=== PATIENT | female | born 1980 | race Caucasian/White ===

== ENCOUNTER 2016-06-19 06:47 | Inpatient (IN) | payer MEDICAID, OTHER ==
[~2016-06-19] VITALS: Ht 172.7 cm; Wt 77.6 kg
[~2016-06-19 06:47] MED LIST: CYCL-36 PO; IBUP800 PO; LEVA750T9 PO; MACR100C PO; TRAM50 PO
[2016-06-19 06:49] VITALS: BP 124/73; PULSE 96; RESP 18; TEMP 97.6; O2SAT 99
[2016-06-19 09:28] VITALS: BP 108/58; PULSE 76; RESP 15; O2SAT 99
[2016-06-19] MEDS ORDERED: SODIUM CHLOR 0.9% 1000 ML INJ 1,000 ML IV SCH (09:44)
[2016-06-19] MEDS ORDERED: SODIUM CHLORIDE 0.9% FLUSH 5 ML FLUSH IVF PRN (09:45)
[2016-06-19 10:35] LABS: AUTOMATED NEUTROPHIL # 4.4 TH/MM3 (1.8-7.7); BASOPHIL % 0.4 % (0.0-2.0); EOSINOPHIL # 0.2 TH/MM3 (0-0.4); EOSINOPHIL % 2.6 % (0.0-4.0); HEMATOCRIT 29.7 % (35.0-46.0); HEMO FLAGS DIFF FINAL; LYMPH % 31.5 % (9.0-44.0); LYMPHOCYTE # 2.4 TH/MM3 (1.0-4.8); MEAN CORPUSCULAR HEMOGLOBIN 31.2 PG (27.0-34.0); MEAN CORPUSCULAR HGB CONC 33.2 % (32.0-36.0); MONO % 6.4 % (0.0-8.0); NEUT % 59.1 % (16.0-70.0); PLATELET COUNT 150 TH/MM3 (150-450); RED BLOOD COUNT 3.16 MIL/MM3 (4.00-5.30); RED CELL DISTRIBUTION WIDTH 13.4 % (11.6-17.2); WHITE BLOOD COUNT 7.5 TH/MM3 (4.0-11.0)
--- NOTE | 2016-06-19 10:38 | PD ---
HPI Chief Complaint: Neuro Symptoms/ Deficits Time Seen by Provider: 09:33 Travel History International Travel<30 days: No Contact w/Intl Traveler<30days: No Traveled to known affect area: No History of Present Illness HPI Patient is a 35-year-old female who presents to emergency room with complaints of incontinence of urine as well as low back pain with numbness to the left leg and difficulty with ambulation. Patient reports that she has been having acute on chronic back pain. Reports that she has been following up with chiropractor who was performing HVLA on her. Patient reports that she has had a few sessions and has had manipulation to her low back. Reports concern as after her session, she began to feel numbness down her left leg. Reports that she can 't feel when she urinates, reports that she has increased numbness down her left leg. Patient called her chiropractor who told her to come to the emergency room as she may need further testing including an MRI of her back. Patient denies any other trauma besides this. Patient does admit to saddle anesthesia. Denies history of any surgeries or procedures to her low back. PFSH Past Medical History Arthritis: No Autoimmune Disease: Yes (chronic fatigue syndrome) Cancer: No Cardiovascular Problems: No High Cholesterol: No Cerebrovascular Accident: No Diabetes: No Diminished Hearing: No Endocrine: No Genitourinary: Yes Immune Disorder: Yes Musculoskeletal: Yes Neurologic: No Psychiatric: No Reproductive: Yes Respiratory: No Immunizations Current: Yes Migraines: No Seizures: Yes (blacks out 3every 3-4 months after abd. pain?) Sleep Apnea: No ?: Not LMP: 05/2016 Menopausal: No : 1 Para: 1 Miscarriage: 0 : 0 Past Surgical History Abdominal Surgery: No Cardiac Surgery: No Ear Surgery: No Endocrine Surgery: No Eye Surgery: No Genitourinary Surgery: No Gynecologic Surgery: No Oral Surgery: Yes Thoracic Surgery: No Other Surgery: Yes (RIGHT 2ND FINGER AMP WITH REATTACHMENT) Social History Alcohol Use: No Tobacco Use: Yes (1PPD) Substance Use: No Allergies-Medications (Allergen,Severity, Reaction): Coded Allergies: Penicillin (Verified Allergy, Severe, HIVES, 06/19/16) Reported Meds & Prescriptions Reported Meds & Active Scripts Active No Active Prescriptions or Reported Medications Review of Systems General / Constitutional: No: Fever Eyes: No: Visual changes HENT: No: Headaches Cardiovascular: No: Chest Pain or Discomfort Respiratory: No: Shortness of Breath Gastrointestinal: No: Abdominal Pain Genitourinary: No: Dysuria Musculoskeletal: Positive: Limited ROM, Pain (low back pain) Skin: No Rash Neurologic: No: Weakness Psychiatric: No: Depression Endocrine: No: Polydipsia Hematologic/Lymphatic: No: Easy Bruising Physical Exam Narrative GENERAL: mild distress SKIN: Warm and dry. HEAD: Atraumatic. Normocephalic. EYES: Pupils equal and round. No scleral icterus. No injection or drainage. ENT: No nasal bleeding or discharge. Mucous membranes pink and moist. NECK: Trachea midline. No JVD. CARDIOVASCULAR: Regular rate and rhythm. No murmur appreciated. RESPIRATORY: No accessory muscle use. Clear to auscultation. Breath sounds equal bilaterally. GASTROINTESTINAL: Abdomen soft, non-tender, nondistended. Patient with saddle anesthesia and exam MUSCULOSKELETAL: No obvious deformities. No clubbing. No cyanosis. No edema. NEUROLOGICAL: Awake and alert. Patient with increased weakness to left lower extremity. Normal speech. PSYCHIATRIC: Patient anxious on exam Data Data Last Documented VS Vital Signs Date Time Temp Pulse Resp B/P Pulse Ox O2 Delivery O2 Flow Rate FiO2 06/19/16 13:19 97.8 90 16 102/53 98 Room Air Orders Complete Blood Count With Diff (06/19/16 09:44) Comprehensive Metabolic Panel (06/19/16 09:44) Prothrombin Time / Inr (Pt) (06/19/16 09:44) Act Partial Throm Time (Ptt) (06/19/16 09:44) Urinalysis - C+S If Indicated (06/19/16 09:44) Iv Access Insert/Monitor (06/19/16 09:44) NPO (06/19/16 09:44) Sodium Chlor 0.9% 1000 Ml Inj (Ns 1000 M (06/19/16 09:44) Sodium Chloride 0.9% Flush (Ns Flush) (06/19/16 09:45) Ed Urine Pregnancytest Poc (06/19/16 09:44) Mri L Spine W&W/O Contrast (06/19/16 ) Mri T Spine W & W/O Contrast (06/19/16 ) Lorazepam Inj (Ativan Inj) (06/19/16 11:00) Mri C Spine W&W/O Contrast (06/19/16 ) Gadodiamide Pf Inj (Omniscan Pf Inj) (06/19/16 12:03) ^ Kaufman Collar (06/19/16 12:58) Dexamethasone Inj (Decadron Inj) (06/19/16 13:00) Admit To Inpatient (06/19/16 ) Vital Signs (Adult) Q4H (06/19/16 13:01) Activity Bed Rest (06/19/16 13:01) Urinary Catheter Management CHARLES.Q8H (06/19/16 13:01) ^ Consent (06/19/16 13:01) Sodium Chlor 0.9% 1000 Ml Inj (Ns 1000 M (06/19/16 13:01) Sodium Chloride 0.9% Flush (Ns Flush) (06/19/16 21:00) Sodium Chloride 0.9% Flush (Ns Flush) (06/19/16 13:15) Pantoprazole Inj (Protonix Inj) (06/20/16 09:00) Oxycodone-Acetamin 5-325 Mg (Percocet (06/19/16 14:00) Morphine Inj (Morphine Inj) (06/19/16 14:00) Scd Bilateral/Knee High CHARLES.QSHIFT (06/19/16 13:01) Inpatient Certification (06/19/16 ) Clindamycin Inj (Cleocin Inj) (06/19/16 14:00) Basic Metabolic Panel (Bmp) (06/20/16 06:00) Complete Blood Count With Diff (06/20/16 06:00) Type And Screen (06/19/16 13:17) Electrocardiogram (06/19/16 13:17) Admit Order (Ed Use Only) (06/19/16 13:17) Labs Laboratory Tests Test 06/19/16 06/19/16 10:00 10:15 White Blood Count 7.5 TH/MM3 Red Blood Count 3.16 MIL/MM3 Hemoglobin 9.9 GM/DL Hematocrit 29.7 % Mean Corpuscular Volume 94.0 FL Mean Corpuscular Hemoglobin 31.2 PG Mean Corpuscular Hemoglobin 33.2 % Concent Red Cell Distribution Width 13.4 % Platelet Count 150 TH/MM3 Mean Platelet Volume 9.1 FL Neutrophils (%) (Auto) 59.1 % Lymphocytes (%) (Auto) 31.5 % Monocytes (%) (Auto) 6.4 % Eosinophils (%) (Auto) 2.6 % Basophils (%) (Auto) 0.4 % Neutrophils # (Auto) 4.4 TH/MM3 Lymphocytes # (Auto) 2.4 TH/MM3 Monocytes # (Auto) 0.5 TH/MM3 Eosinophils # (Auto) 0.2 TH/MM3 Basophils # (Auto) 0.0 TH/MM3 CBC Comment DIFF FINAL Differential Comment Prothrombin Time 10.4 SEC Prothromb Time International 0.9 RATIO Ratio Activated Partial 29.6 SEC Thromboplast Time Sodium Level 139 MEQ/L Potassium Level 4.2 MEQ/L Chloride Level 109 MEQ/L Carbon Dioxide Level 23.0 MEQ/L Anion Gap 7 MEQ/L Blood Urea Nitrogen 14 MG/DL Creatinine 0.85 MG/DL Estimat Glomerular Filtration 75 ML/MIN Rate Random Glucose 77 MG/DL Calcium Level 8.8 MG/DL Total Bilirubin 0.2 MG/DL Aspartate Amino Transf 13 U/L (AST/SGOT) Alanine Aminotransferase 11 U/L (ALT/SGPT) Alkaline Phosphatase 78 U/L Total Protein 6.7 GM/DL Albumin 3.7 GM/DL Urine Color YELLOW Urine Turbidity HAZY Urine pH 7.0 Urine Specific [place] 1.014 Urine Protein NEG mg/dL Urine Glucose (UA) NEG mg/dL Urine Ketones NEG mg/dL Urine Occult Blood NEG Urine Nitrite NEG Urine Bilirubin NEG Urine Urobilinogen LESS THAN 2.0 MG/DL Urine Leukocyte Esterase NEG Urine RBC 1 /hpf Urine WBC 2 /hpf Urine Squamous Epithelial 8 /hpf Cells Urine Bacteria RARE /hpf Microscopic Urinalysis Comment CULT NOT INDICATED MDM Medical Decision Making Medical Screen Exam Complete: Yes Emergency Medical Condition: Yes Interpretation(s) EKG at 1404: Normal sinus rhythm at 75 beats a minute, QT/QTC 364/392, no acute ST-T wave changes Vital Signs Date Time Temp Pulse Resp B/P Pulse Ox O2 Delivery O2 Flow Rate FiO2 06/19/16 09:28 76 15 108/58 99 Room Air 06/19/16 09:22 17 Room Air 06/19/16 06:49 97.6 96 18 124/73 99 Differential Diagnosis Acute on chronic back pain, cauda equina, epidural abscess, radiculopathy, cord compression Narrative Course Patient is a 35-year-old female who presents to ER with c/o of low back pain with radiculopathy and urinary incontinence with numbness to her left lower leg for the past 5 days. She reports that this occurred after she had a chiropractor treatment to her low back. Patient here for MRI of her low back for further evaluation of symptoms.. MRI of L-spine with and without contrast ordered for evaluation of possible epidural abscess versus cauda equina. Consideration for abscess as patient reports that she feels a "abscess to her low back" the past couple days, patient denies history of IV drug abuse or any surgical procedures to her low back MRI of the C-spine with large disc herniation at C6 to C7 with cord contusion and edema and the cord Call made to Dr. Claudio with neurosurgery, will admit pt to her service - requests Kaufman J collar and dexamethasone 10 mg Critical Care Narrative Aggregate critical care time was 30 minutes. Time to perform other separately billable procedures was not included in the critical care time. My time did not include minutes spent treating any other patients simultaneously or on activities that did not directly contribute to the patient's treatment. The services I provided to this patient were to treat and/or prevent clinically significant deterioration that could result in: , decompensation, deterioration I provided critical care services requiring my management, as noted below: Chart data review, documentation time, medication orders and management, vital sign assessments/reviewing monitor data, ordering and reviewing lab tests, ordering and interpreting/reviewing x-rays and diagnostic studies, care of the patient and discussion of the patient with the admitting physicians. Physician Communication Physician Communication case discussed with neurosurgeon Dr Gao, accepts pt to service Diagnosis Primary Impression: disc herniation with cord contusion and edema C6-C7 Admitting Information Admitting Physician Requests: Admit Scripts No Active Prescriptions or Reported Meds Xenia Santoyo DO Jun 19, 2016 10:38
[2016-06-19 10:43] LABS: APTT (PATIENT) 29.6 SEC (24.3-30.1); INTERNATIONAL NORMALIZED RATIO 0.9 RATIO; PROTHROMBIN TIME - PATIENT 10.4 SEC (9.8-11.6)
[2016-06-19 10:46] LABS: BACTERIA, URINE RARE /hpf; BLOOD, URINE NEG (NEG); GLUCOSE,URINE NEG (NEG); KETONE, URINE NEG (NEG); NITRITE,URINE NEG (NEG); SQUAMOUS EPITHELIAL CELL URINE 8 /hpf (0-5); URINE COLOR YELLOW (YELLW/STRAW)
[2016-06-19 10:49] LABS: COMMENT (UR) CULT NOT INDICATED; CULTURE IF INDICATED CULT NOT INDICATED
[2016-06-19 10:54] LABS: ANION GAP 7 MEQ/L (5-15); AST (GOT) 13 U/L (15-37); BLOOD UREA NITROGEN 14 MG/DL (7-18); CHLORIDE 109 MEQ/L (98-107); GLOMERULAR FILTRATION RATE 75 ML/MIN (>89); POTASSIUM 4.2 MEQ/L (3.5-5.1); SODIUM (NA) 139 MEQ/L (136-145)
[2016-06-19 10:57] LABS: ALKALINE PHOSPHATASE 78 U/L (45-117); ALT (GPT) 11 U/L (10-53); TOTAL BILIRUBIN ADULT 0.2 MG/DL (0.2-1.0)
[2016-06-19] MEDS ORDERED: LORazepam 2 MG/ML VIAL IV PUSH ONE (11:00)
[2016-06-19] MEDS ORDERED: GADODIAMIDE PF 287 MG/ML 5 ML VIAL (for RAD MRI) IV ONE (12:03)
--- NOTE | 2016-06-19 12:55 | RADRPT ---
EXAM DATE/TIME: 06/19/2016 11:16 [facility] COMPARISON: No previous studies available for comparison. INDICATIONS : Abscess. Back pain times 3 months. CONTRAST: 15 cc Omniscan (gadodiamide) IV MEDICAL HISTORY : Hx of blood infection. SURGICAL HISTORY : Hand surgery. TECHNIQUE: Multiplanar multisequence MRI of the lumbar spine was performed with and without contrast. FINDINGS: The most caudal appearing lumbar vertebra is numbered as L5. VERTEBRAE: Homogeneous signal. Normal alignment. CONUS: Normal level and configuration. POST CONTRAST: No abnormal areas of contrast enhancement are seen. T12-L1: The thecal sac has a normal diameter. No evidence of disc bulge or protrusion. The neural foramina are patent bilaterally. L1-L2: The thecal sac has a normal diameter. No evidence of disc bulge or protrusion. The neural foramina are patent bilaterally. L2-L3: The thecal sac has a normal diameter. No evidence of disc bulge or protrusion. The neural foramina are patent bilaterally. L3-L4: The thecal sac has a normal diameter. No evidence of disc bulge or protrusion. The neural foramina are patent bilaterally. L4-L5: The thecal sac has a normal diameter. No evidence of disc bulge or protrusion. The neural foramina are patent bilaterally. L5-S1: The thecal sac has a normal diameter. No evidence of disc bulge or protrusion. The neural foramina are patent bilaterally. CONCLUSION: Negative for acute process.. To Troy MD FACR on June 19, 2016 at 12:51 Board Certified Radiologist. This report was verified electronically.
[2016-06-19] MEDS ORDERED: DEXAMETHASONE SOD PHOS 20 MG/5 ML VIAL IV PUSH ONE (13:00)
[2016-06-19] MEDS: SODIUM CHLOR 0.9% 1000 ML INJ 1,000 ML IV SCH ×2 (13:01→23:01)
--- NOTE | 2016-06-19 13:02 | RADRPT ---
EXAM DATE/TIME: 06/19/2016 11:16 [facility] COMPARISON: No previous studies available for comparison. INDICATIONS: Abscess. CONTRAST: 15 cc Omniscan (gadodiamide) IV MEDICAL HISTORY: Blood infection. SURGICAL HISTORY: Hand surgery ENCOUNTER: Initial ACUITY: 3 months PAIN SCORE: 3/10 LOCATION: Neck TECHNIQUE: Multiplanar, multisequence MRI examination of the cervical spine was performed. FINDINGS: The study is abnormal. There is a large disc herniation at C6-C7 with edema in the cord. There is s sina stenosis. C2-C3: The thecal sac has a normal configuration. There is no evidence of disc herniation or spinal canal s tenosis. The neural foramina are patent bilaterally. C3-C4: The thecal sac has a normal configuration. There is no evidence of disc herniation or spinal canal s tenosis. The neural foramina are patent bilaterally. C4-C5: There is mild uncinate ridging present slightly more prominent on the right than the left. C5-C6: Very mild central bulging is present without significant spinal stenosis. C6-C7: Again seen is the significant abnormality at C6-C7 with large disc herniation or contusion. CONCLUSION: Large disc herniation at C6-C7 with cord contusion and edema in the cord. To Troy MD FACR on June 19, 2016 at 12:49 Board Certified Radiologist. This report was verified electronically.
[2016-06-19] MEDS ORDERED: SODIUM CHLORIDE 0.9% FLUSH 5 ML FLUSH IV FLUSH PRN (13:15)
[2016-06-19 13:19] VITALS: BP 102/53; PULSE 90; RESP 16; TEMP 97.8; O2SAT 98
[2016-06-19] MEDS ORDERED: CLINDAMYCIN PHOS 600 MG/4 ML VIAL IM ONE (14:00)
--- NOTE | 2016-06-19 14:09 | RADRPT ---
EXAM DATE/TIME: 06/19/2016 11:16 [facility] COMPARISON: No previous studies available for comparison. INDICATIONS: Abscess. Back pain times 3 months. CONTRAST: 15 cc Omniscan (gadodiamide) IV MEDICAL HISTORY: None. SURGICAL HISTORY: Hand surgery. ENCOUNTER: Initial ACUITY: 3 months PAIN SCORE: 5/10 LOCATION: Mid back TECHNIQUE: Multiplanar multisequence MRI of the thoracic spine was performed. FINDINGS: Sagittal T1, T2 and inversion recovery images show an isolated disc protrusion left posterior T8-9 wh ich encroaches on the anterior epidural space but does not result in significant stenosis. The spina l canal in the region of the dorsal spine is otherwise widely patent. However, at the very top of th e image, there appears to be a large disc at C6-7 which encroaches on the spinal canal, appears to re sult in some cord compromise and regional cord edema. In addition, there is a focal area of enhancem ent in the same general vicinity. Cord signal is normal throughout the rest of the spine. Detailed axial images as follows: T1-T2: Normal. T2-T3: The thecal sac has a normal diameter. No evidence of disc bulge or protrusion. T3-T4: The thecal sac has a normal diameter. No evidence of disc bulge or protrusion. T4-T5: The thecal sac has a normal diameter. No evidence of disc bulge or protrusion. T5-T6: The thecal sac has a normal diameter. No evidence of disc bulge or protrusion. T6-T7: The thecal sac has a normal diameter. No evidence of disc bulge or protrusion. T7-T8: The thecal sac has a normal diameter. No evidence of disc bulge or protrusion. T8-T9: Small left posterior disc protrusion which encroaches on the anterior epidural space. Spinal canal r emains patent, however. T9-T10: The thecal sac has a normal diameter. No evidence of disc bulge or protrusion. T10-T11: The thecal sac has a normal diameter. No evidence of disc bulge or protrusion. T11-T12: The thecal sac has a normal diameter. No evidence of disc bulge or protrusion. T12-L1: The thecal sac has a normal diameter. No evidence of disc bulge or protrusion. CONCLUSION: 1. Small left posterior disc protrusion at T8-9 encroaches on the anterior epidural space but does n ot result in significant stenosis. Spinal canal is patent throughout the dorsal spine. 2. Apparent large disc at C6-7 which encroaches on the spinal canal and appears to result in cord co mpromise and focal cord edema. 3. In addition, there appears to be an area of enhancement within the cord at that C6-7. Whether th is is reactive due to the cord compromise or actually represents an intramedullary lesion cannot be d etermined on this limited exam of this region. Recommend a dedicated MRI of the cervical spine with and without gadolinium for further characterization. Bran Townsend MD on June 19, 2016 at 13:02 Board Certified Radiologist. This report was verified electronically.
--- NOTE | 2016-06-19 14:18 | HHI.HP ---
HPI Service Neurosurgery Primary Care Physician Jamarcus Fischer Chief Complaint: numbness and pain from the neck down History of Present Illness 35 yr old presents with increased difficulty walking and controlling her bladder. She had neck pain and numbness in both lateral arms radiating to the hands with neck flexion since last February. She has improved with senior care specialist but after recent neck alignment she developed difficulty walking and urinary incontinence as well as severe back spasms. Her left groin and SI region are numb and locked. She had no trauma. Review of Systems Constitutional: COMPLAINS OF: Fatigue Endocrine: DENIES: Abnorml menstrual pattern, Heat/cold intolerance, Polydipsia , Polyuria, Polyphagia Eyes: DENIES: Blurred vision, Diplopia, Eye inflammation, Eye pain, Vision loss , Photosensitivity, Double Vision Ears, nose, mouth, throat: DENIES: Tinnitus, Hearing loss, Vertigo, Nasal discharge, Oral lesions, Throat pain, Hoarseness, Ear Pain, Running Nose, Epistaxis, Sinus Pain, Toothache, Odynophagia Respiratory: COMPLAINS OF: Cough, DENIES: Apneas, Snoring, Wheezing, Hemoptysis, Sputum production, Shortness of breath Cardiovascular: DENIES: Chest pain, Palpitations, Syncope, Dyspnea on Exertion , PND, Lower Extremity Edema, Orthopnea, Claudication Gastrointestinal: DENIES: Abdominal pain, Black stools, Bloody stools, Constipation, Diarrhea, Nausea, Vomiting, Difficulty Swallowing, Anorexia Genitourinary: COMPLAINS OF: Urinary incontinence, DENIES: Abnormal vaginal bleeding, Dysmenorrhea, Dyspareunia, Sexual dysfunction, Urinary frequency, Urgency, Hematuria, Dysuria, Nocturia, Vaginal discharge Musculoskeletal: COMPLAINS OF: Joint pain, Muscle aches, Stiffness, Joint Swelling, Back pain, Neck pain Integumentary: DENIES: Abnormal pigmentation, Pruritus, Rash, Nail changes, Breast masses, Breast skin changes, Nipple discharge Hematologic/lymphatic: DENIES: Bruising, Lymphadenopathy Immunologic/allergic: DENIES: Eczema, Urticaria Neurologic: COMPLAINS OF: Abnormal gait, Paresthesias, Poor Balance Psychiatric: COMPLAINS OF: Anxiety, Mood changes Past Family Social History Allergies: Coded Allergies: Penicillin (Verified Allergy, Severe, HIVES, 06/19/16) Past Medical History 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 [employer] Physical Exam Vital Signs Vital Signs Date Time Temp Pulse Resp B/P Pulse Ox O2 Delivery O2 Flow Rate FiO2 06/19/16 13:19 97.8 90 16 102/53 98 Room Air 06/19/16 09:28 76 15 108/58 99 Room Air 06/19/16 09:22 17 Room Air 06/19/16 06:49 97.6 96 18 124/73 99 Physical Exam Awake, oriented x 3, EOMI, pupils 2mm reactive, atraumatic head appearance Neck supple, but spastic tone in both arms and legs, positive [place] and clonus bilaterally Motor strength 4+/5 in the delt/bic/tri/IO, better on the left than on the right , HF/quads/at gastroc 5/5 with pain in the left SI region and thigh Lungs clear with occasional rhonchi, S1S2 with systolic flow murmur, abd soft, obese with left lower quadrant hyperesthesia in the left femoral distribution Skin warm, no rashes today, no bruising, cyanosis or edema. Laboratory Laboratory Tests Test 06/19/16 06/19/16 10:00 10:15 White Blood Count 7.5 Red Blood Count 3.16 Hemoglobin 9.9 Hematocrit 29.7 Mean Corpuscular Volume 94.0 Mean Corpuscular Hemoglobin 31.2 Mean Corpuscular Hemoglobin 33.2 Concent Red Cell Distribution Width 13.4 Platelet Count 150 Mean Platelet Volume 9.1 Neutrophils (%) (Auto) 59.1 Lymphocytes (%) (Auto) 31.5 Monocytes (%) (Auto) 6.4 Eosinophils (%) (Auto) 2.6 Basophils (%) (Auto) 0.4 Neutrophils # (Auto) 4.4 Lymphocytes # (Auto) 2.4 Monocytes # (Auto) 0.5 Eosinophils # (Auto) 0.2 Basophils # (Auto) 0.0 CBC Comment DIFF FINAL Differential Comment Prothrombin Time 10.4 Prothromb Time International 0.9 Ratio Activated Partial 29.6 Thromboplast Time Sodium Level 139 Potassium Level 4.2 Chloride Level 109 Carbon Dioxide Level 23.0 Anion Gap 7 Blood Urea Nitrogen 14 Creatinine 0.85 Estimat Glomerular Filtration 75 Rate Random Glucose 77 Calcium Level 8.8 Total Bilirubin 0.2 Aspartate Amino Transf 13 (AST/SGOT) Alanine Aminotransferase 11 (ALT/SGPT) Alkaline Phosphatase 78 Total Protein 6.7 Albumin 3.7 Urine Color YELLOW Urine Turbidity HAZY Urine pH 7.0 Urine Specific [place] 1.014 Urine Protein NEG Urine Glucose (UA) NEG Urine Ketones NEG Urine Occult Blood NEG Urine Nitrite NEG Urine Bilirubin NEG Urine Urobilinogen LESS THAN 2.0 Urine Leukocyte Esterase NEG Urine RBC 1 Urine WBC 2 Urine Squamous Epithelial 8 Cells Urine Bacteria RARE Microscopic Urinalysis Comment CULT NOT INDICATED Result Diagram: 06/19/16 1000 06/19/16 1000 Imaging Last Impressions Lumbar Spine MRI 06/19/16 0000 Signed Impressions: Service Date/Time: Sunday, June 19, 2016 11:16 - CONCLUSION: Negative for acute process.. To Troy MD FACR Cervical Spine MRI 06/19/16 0000 Signed Impressions: Service Date/Time: Sunday, June 19, 2016 11:16 - CONCLUSION: Large disc herniation at C6-C7 with cord contusion and edema in the cord. To Troy MD FACR Assessment and Plan Diagnosis: (1) Anemia, chronic disease Plan: Will monitor the hemoglobin and provide folate.The patient has known chronic anemia and is awaiting a hysterectomy ICD Code: D63.8 (2) Cervical spondylosis with myelopathy Plan: Large HNP at C6/7 with cord edema, chronic since last February, will need surgical decompression and arthrodesis. Surgery is scheduled for tomorrow at 13: 00. The risk of infection, bleeding, subsidence, cord edema was discussed with the patient and her . ICD Code: M47.12 Jose Guy Jun 19, 2016 14:18
[2016-06-19] MEDS: BACLOFEN 10 MG TAB PO SCH ×2 (15:00→22:45)
[2016-06-19] MEDS: LIDOCAINE HCL 5% PATCH TD SCH (15:09)
[2016-06-19] MEDS: REMOVE OLD NICODERM (NICOTINE) PATCH TD SCH (16:00)
[2016-06-19] MEDS: NICOTINE 21 MG/24 HR PATCH TD SCH (16:00)
--- NOTE | 2016-06-19 17:52 | EKG ---
Date Performed: 06/19/2016 Time Performed: 14:04:45 PTAGE: 35 years EKG: Sinus rhythm LOW QRS VOLTAGE IN PRECORDIAL LEADS BORDERLINE ECG NO SIGNIFICANT CHANGE FROM PRIOR ELECTROCARDIOGRA M. PREVIOUS TRACING : 10/22/2014 21.21 DOCTOR: Saurav Benz Interpretating Date/Time 06/19/2016 17:51:51
[2016-06-19] MEDS: [UNRECOGNIZED DRUG - REMARK] T-DERMAL SCH (21:00)
[2016-06-19] MEDS: SODIUM CHLORIDE 0.9% FLUSH 5 ML FLUSH IV FLUSH SCH (21:28)
[2016-06-19 22:00] VITALS: PULSE 84
[2016-06-19] MEDS: oxyCODONE/ACETAMINOPHEN 5 MG/325 MG TAB PO PRN (22:45)
[2016-06-20] VITALS (11 sets, daily range): BP systolic 93–106; BP diastolic 52–70; PULSE 52–84; RESP 16–20; TEMP 97.7–99; O2SAT 93–99
[2016-06-20 05:03] LABS: AUTOMATED NEUTROPHIL # 19.2 TH/MM3 (1.8-7.7); BASOPHIL % 0.2 % (0.0-2.0); HEMATOCRIT 40.8 % (35.0-46.0); HEMO FLAGS DIFF FINAL; LYMPH % 10.2 % (9.0-44.0); LYMPHOCYTE # 2.3 TH/MM3 (1.0-4.8); MEAN CELL VOLUME 92.1 FL (80.0-100.0); MEAN CORPUSCULAR HEMOGLOBIN 30.8 PG (27.0-34.0); MEAN CORPUSCULAR HGB CONC 33.4 % (32.0-36.0); MONO % 3.8 % (0.0-8.0); NEUT % 85.8 % (16.0-70.0); PLATELET COUNT 210 TH/MM3 (150-450); RED BLOOD COUNT 4.43 MIL/MM3 (4.00-5.30); RED CELL DISTRIBUTION WIDTH 13.3 % (11.6-17.2); WHITE BLOOD COUNT 22.4 TH/MM3 (4.0-11.0)
[2016-06-20 05:30] LABS: ANION GAP 6 MEQ/L (5-15); BICARBONATE 21.8 MEQ/L (21.0-32.0); BLOOD UREA NITROGEN 13 MG/DL (7-18); CHLORIDE 113 MEQ/L (98-107); GLOMERULAR FILTRATION RATE 70 ML/MIN (>89); POTASSIUM 4.1 MEQ/L (3.5-5.1); SODIUM (NA) 141 MEQ/L (136-145); TRANSFERRIN IRON PROFILE 190 MG/DL (200-360)
[2016-06-20] MEDS: BACLOFEN 10 MG TAB PO SCH ×3 (06:13→21:00)
[2016-06-20] MEDS: SODIUM CHLORIDE 0.9% FLUSH 5 ML FLUSH IV FLUSH SCH ×2 (08:23→22:45)
[2016-06-20] MEDS: MULTIVIT/MIN/PREN/FOL AC/IRON PRENATAL TAB PO SCH (08:23)
[2016-06-20] MEDS: PANTOPRAZOLE SODIUM 40 MG VIAL IV SCH (08:23)
[2016-06-20] MEDS: REMOVE OLD NICODERM (NICOTINE) PATCH TD SCH (08:23)
[2016-06-20] MEDS: LIDOCAINE HCL 5% PATCH TD SCH (08:24)
[2016-06-20] MEDS: NICOTINE 21 MG/24 HR PATCH TD SCH (08:24)
[2016-06-20] MEDS: SODIUM CHLOR 0.9% 1000 ML INJ 1,000 ML IV SCH (09:01)
[2016-06-20] MEDS: oxyCODONE/ACETAMINOPHEN 5 MG/325 MG TAB PO PRN ×2 (11:37→21:01)
[2016-06-20 11:41] LABS: HEMOGLOBIN A1a 1.2 %; HEMOGLOBIN A1b 1.6 %; HEMOGLOBIN Ao 84.7 %; HEMOGLOBIN LA1C 2.7 %
[2016-06-20] MEDS ORDERED: BUPIVACAINE HCL PF 0.5% 30 ML VIAL ONE (11:56)
[2016-06-20] MEDS ORDERED: GELFOAM SIZE 100 ONE (11:56)
[2016-06-20] MEDS ORDERED: LIDOCAINE 1%/EPINEPHrine 1:100,000 SOLN 30 ML VIAL ONE (11:56)
[2016-06-20] MEDS ORDERED: THROMBIN (TOPICAL) 5,000 UNIT VIAL ONE (11:56)
[2016-06-20] MEDS ORDERED: NEOSTIGMINE 3 MG/3 ML SYR IV ONE (12:00)
[2016-06-20] MEDS ORDERED: PHENYLEPH/NS 1000 MCG/10 ML SYR IV ONE (12:00)
[2016-06-20] MEDS ORDERED: PROPOFOL 200 MG/20 ML AMP IV ONE (12:00)
[2016-06-20] MEDS ORDERED: NORMOSOL R INJ 1,000 ML IV ONE (12:00)
[2016-06-20] MEDS ORDERED: FAMOTIDINE 20 MG/2 ML VIAL ONE (13:08)
[2016-06-20] MEDS ORDERED: KETAMINE HCL 500 MG/5 ML VIAL ONE (13:15)
[2016-06-20] MEDS ORDERED: ACETAMINOPHEN 1000 MG/100 ML VIAL IV ONE (13:15)
[2016-06-20] MEDS ORDERED: HYDROmorphone HCL PF 2 MG/ML VIAL ONE (13:15)
[2016-06-20] MEDS ORDERED: fentaNYL CITRATE 250 MCG/5 ML AMP ONE ×2 (13:15→15:08)
[2016-06-20] MEDS ORDERED: MIDAZOLAM HCL 2 MG/2 ML VIAL ONE (13:26)
[2016-06-20] MEDS ORDERED: CLINDAMYCIN PHOS 600 MG/4 ML VIAL ONE (13:27)
[2016-06-20] MEDS ORDERED: SODIUM CHLORIDE 0.9% INJ 100 ML ONE (13:28)
--- NOTE | 2016-06-20 15:25 | OTSOAPIP ---
TIME SESSION COMPLETED: AM TREATMENT TIME: 0 MINS. CHART REVIEWED. PATIENT ADMITTED WITH COMPLAINT OF BILATERAL UPPER EXTREMITIES NUMBNESS, DIFFICULTY AMBULATING AND UNCONTROLLED BLADDER. PATIENT WAS FOUND TO HAVE A LARGE DISC HERNIATION AT C6-C7 WITH CORD CONTUSION AND EDEMA IN THE CORD PATIENT WAS NOT AVAILABLE SECONDARY TO [facility]AVING CERVICAL SURGERY PLAN: WILL SEE PATIENT NEXT TREATMENT DAY INTERDISCIPLINARY COMMUNICATION: SPOKE WITH NURSING Therapist: HETAL LOERA/Romaine Signature on file
--- NOTE | 2016-06-20 16:44 | RADRPT ---
EXAM DATE/TIME: 06/20/2016 17:04 [facility] COMPARISON: No previous studies available for comparison. INDICATIONS : Cervical Spine Fusion and Diskectomy, C6-7. MEDICAL HISTORY : Osteoporosis. Seizures. SURGICAL HISTORY : None. ENCOUNTER: Initial ACUITY: 1 day PAIN SCORE: Non-responsive. LOCATION: Cervical Spine. FINDINGS: AP and lateral cone-down views of the cervical spine were obtained using a matrix camera. This demons trates that the patient is status post anterior fusion at the C6-7 level with intact anterior screw-p late fixation device in place. There is bone grafting material in the interspace. The alignment appea rs anatomic. CONCLUSION: Status post anterior fusion at the C6-7 level. Kj Goyal MD on June 20, 2016 at 16:41 Board Certified Radiologist. This report was verified electronically.
[2016-06-20] MEDS ORDERED: DO NOT ADM ANY ANTICOAGULANT DRUGS XX PRN (18:00)
[2016-06-20] MEDS: MORPHINE SULFATE 4 MG/ML INJ IV PRN (22:23)
[2016-06-21] VITALS (11 sets, daily range): BP systolic 94–120; BP diastolic 56–70; PULSE 46–84; RESP 16–20; TEMP 98–98.4; O2SAT 95–98
[2016-06-21] MEDS: oxyCODONE/ACETAMINOPHEN 5 MG/325 MG TAB PO PRN ×4 (01:32→19:56)
[2016-06-21] MEDS: MORPHINE SULFATE 4 MG/ML INJ IV PRN ×2 (04:06→10:43)
[2016-06-21 05:05] LABS: BASOPHIL # 0.1 TH/MM3 (0-0.2); BASOPHIL % 0.4 % (0.0-2.0); EOSINOPHIL % 0.1 % (0.0-4.0); HEMO FLAGS DIFF FINAL; LYMPH % 14.2 % (9.0-44.0); LYMPHOCYTE # 3.2 TH/MM3 (1.0-4.8); MEAN CELL VOLUME 94.1 FL (80.0-100.0); MEAN CORPUSCULAR HEMOGLOBIN 30.9 PG (27.0-34.0); MEAN CORPUSCULAR HGB CONC 32.8 % (32.0-36.0); MONO % 4.6 % (0.0-8.0); NEUT % 80.7 % (16.0-70.0); PLATELET COUNT 185 TH/MM3 (150-450); RED BLOOD COUNT 4.14 MIL/MM3 (4.00-5.30); RED CELL DISTRIBUTION WIDTH 13.6 % (11.6-17.2); WHITE BLOOD COUNT 22.3 TH/MM3 (4.0-11.0)
[2016-06-21] MEDS: BACLOFEN 10 MG TAB PO SCH ×3 (05:34→19:55)
[2016-06-21 05:36] LABS: BICARBONATE 21.6 MEQ/L (21.0-32.0); POTASSIUM 4.9 MEQ/L (3.5-5.1)
[2016-06-21] MEDS: SODIUM CHLORIDE 0.9% FLUSH 5 ML FLUSH IV FLUSH SCH ×2 (07:31→19:57)
[2016-06-21] MEDS: REMOVE OLD NICODERM (NICOTINE) PATCH TD SCH (07:31)
[2016-06-21] MEDS: PANTOPRAZOLE SODIUM 40 MG VIAL IV SCH (07:31)
[2016-06-21] MEDS: MULTIVIT/MIN/PREN/FOL AC/IRON PRENATAL TAB PO SCH (07:31)
[2016-06-21] MEDS: NICOTINE 21 MG/24 HR PATCH TD SCH (07:32)
[2016-06-21] MEDS: LIDOCAINE HCL 5% PATCH TD SCH (07:32)
[2016-06-21] MEDS ORDERED: guaiFENesin SOLUTION 200 MG/10 ML CUP PO PRN (18:30)
[2016-06-21] MEDS ORDERED: BENZOCAINE-MENTHOL (SUGAR FREE) 15 MG-3.6 MG LOZENGE BUCCAL PRN ×2 (18:30→21:15)
[2016-06-21] MEDS: [UNRECOGNIZED DRUG - REMARK] T-DERMAL SCH (20:00)
--- NOTE | 2016-06-21 21:13 | HHI.NSPN ---
History Chief Complaint: coughing with soar throat Interval History Day 1 after ACDF at C6/7 for a large HNP with cord contusion, alert and starting PT. Her balance difficulty and numbness in the right C7 and left thigh require the help of PT and OT this week end. She has been coughing but lozanges and robitussin helped. She is eating well. Review of Systems General: Negative for: fever, chills, insomnia Respiratory: Positive for: cough Cardiovascular: Negative for: chest pain, palpitations, orthopnea Gastrointestinal: Negative for: nausea, vomitting, diarrhea, constipation Genitourinary: Negative for: urinary burning, urinary frequency, urinary urgency Exam Results Vital Signs Date Time Temp Pulse Resp B/P Pulse Ox O2 Delivery O2 Flow Rate FiO2 06/21/16 20:15 98.4 84 16 105/58 96 06/21/16 09:57 21 06/20/16 19:47 Nasal Cannula 2.00 Intake and Output 06/20/16 06/20/16 06/21/16 08:00 16:00 00:00 Intake Total 613 ml 534 ml 2937 ml Output Total 800 ml Balance 613 ml 534 ml 2137 ml Physical Examination Alert and oriented x 3, Face symmetric, voice nasal, Motor 5/5 in the delt/bic/tri/grasps/HF but numb in the last digit of the right hand and in the left thigh Spasticity is still severe with positive Bullard bilaterally Abd soft, wound dry Lab, Micro, Other Results Laboratory Tests Test 06/21/16 04:10 White Blood Count 22.3 TH/MM3 Red Blood Count 4.14 MIL/MM3 Hemoglobin 12.8 GM/DL Hematocrit 39.0 % Mean Corpuscular Volume 94.1 FL Mean Corpuscular Hemoglobin 30.9 PG Mean Corpuscular Hemoglobin 32.8 % Concent Red Cell Distribution Width 13.6 % Platelet Count 185 TH/MM3 Mean Platelet Volume 9.3 FL Neutrophils (%) (Auto) 80.7 % Lymphocytes (%) (Auto) 14.2 % Monocytes (%) (Auto) 4.6 % Eosinophils (%) (Auto) 0.1 % Basophils (%) (Auto) 0.4 % Neutrophils # (Auto) 18.0 TH/MM3 Lymphocytes # (Auto) 3.2 TH/MM3 Monocytes # (Auto) 1.0 TH/MM3 Eosinophils # (Auto) 0.0 TH/MM3 Basophils # (Auto) 0.1 TH/MM3 CBC Comment DIFF FINAL Differential Comment Sodium Level 142 MEQ/L Potassium Level 4.9 MEQ/L Chloride Level 112 MEQ/L Carbon Dioxide Level 21.6 MEQ/L Anion Gap 8 MEQ/L Blood Urea Nitrogen 11 MG/DL Creatinine 0.88 MG/DL Estimat Glomerular Filtration 72 ML/MIN Rate Random Glucose 105 MG/DL Calcium Level 8.9 MG/DL Medical Decision Making Impression and Plan Cervical myelopathy, s/p ACDF C6/7, started OT/PT for safety, balance and core strength. Plan discharge when the gait has improved and after she has a BM. Jose Guy Jun 21, 2016 21:12
[2016-06-21] MEDS ORDERED: MAGNESIUM HYDROXIDE SUSP 30 ML CUP PO PRN (21:15)
--- NOTE | 2016-06-21 21:25 | MP ---
cc: JOSE BURR MD DATE OF SURGERY 06/20/16 PREOPERATIVE DIAGNOSIS Cervical spondylosis with myelopathy, extruded disk C6-7, cord compression. POSTOPERATIVE DIAGNOSIS Cervical spondylosis with myelopathy, extruded disk C6-7, cord compression. PROCEDURE Cord decompression at C6-7, arthrodesis with iliac crest allograft and instrumentation with Simplicity plate 22 mm and 4.0 x 14 variable screws from [place] at C6-7. HISTORY The patient is a 35-year-old lady who presented with multiple symptoms including difficulty walking and severe paresthesias in both arms and legs. She was found to have a cord edema and very large disk herniation at C6-7. She was taken to the operating room for decompression of the cord. SURGEON Jose Burr MD ANESTHESIA General TECHNIQUE The patient was brought to the operating room, place supine on the OR table. The baseline somatosensory evoked potentials were obtained. The patient was then intubated in a neutral neck position using the glide scope. After induction and induction and placement of a Jimenez, lateral x-ray was taken to verify the alignment. The incision was planned in a neck crease lateral to the midline on the right side. The skin was prepped with Betadine and then cleansed and prepped with ChloraPrep and allowed to dry. A time-out was obtained with the entire team. The skin was then infiltrated with 1% lidocaine with epinephrine. The incision was made with a 15 blade. The incision was carried through the platysma muscle with the monopolar cautery. The avascular plane medial to the sternocleidomastoid muscle and medial to the carotid artery was opened with blunt scissors. The retractor blades were then placed under the longus colli and an x-ray was obtained. The C6-7 level was marked with the monopolar cautery. The microscope was then brought into the field. Under the microscope, the ventral osteophytes were removed and Hemingway pins were inserted at C6 and C7. The disk was removed at C6-7 and the endplates cleaned with curette rongeurs. The large disk herniation was then removed in a piecemeal fashion decompressing the posterior longitudinal ligament. At the end of this decompression, the ligament was partially dissected but not completely removed because it was severely scarred to the dura. All osteophytes in front of the canal were removed with the 2-mm Kerrison rongeur. The foramina were opened with 2-mm Kerrison rongeurs. Hemostasis was obtained with FloSeal. A 7 mm graft was then easily introduced in the disk space. The 14-mm screws were then drilled at C6 and C7 using a 22 mm Simplicity plate. The locking mechanism was then activated. An x-ray was taken, AP and lateral, to verify the position of the graft and the position of the screws. The cervical fascia was then closed with 2-0 Vicryl sutures. The platysma was reapproximated with 2-0 Vicryl sutures. The dermis was reapproximated with 2-0 Vicryl sutures. The skin edges were reapproximated with 4-0 subcuticular suture. Steri-Strips were applied. Telfa and Medipore tape was then sterilely applied to the wound. The patient was then extubated and brought back to the recovery room in a stable condition. ESTIMATED BLOOD LOSS Estimated at 50 mL. Somatosensory evoked potentials and motor evoked potentials were unchanged during the case. Jose Burr MD YYG/ /4:33 PM /9:08 PM MTDBob
[2016-06-22] VITALS (9 sets, daily range): BP systolic 103–125; BP diastolic 56–70; PULSE 78–89; RESP 16–18; TEMP 97.4–98.8; O2SAT 94–98
[2016-06-22] MEDS: oxyCODONE/ACETAMINOPHEN 5 MG/325 MG TAB PO PRN ×5 (02:43→21:36)
[2016-06-22] MEDS: BACLOFEN 10 MG TAB PO SCH ×3 (05:09→21:34)
[2016-06-22] MEDS: LIDOCAINE HCL 5% PATCH TD SCH (09:00)
[2016-06-22] MEDS: NICOTINE 21 MG/24 HR PATCH TD SCH (09:00)
[2016-06-22] MEDS: REMOVE OLD NICODERM (NICOTINE) PATCH TD SCH (09:00)
[2016-06-22] MEDS: MULTIVIT/MIN/PREN/FOL AC/IRON PRENATAL TAB PO SCH (09:05)
[2016-06-22] MEDS: PANTOPRAZOLE SODIUM 40 MG VIAL IV SCH (09:05)
[2016-06-22] MEDS: DOCUSATE SODIUM 50 MG/SENNA 8.6 MG TAB PO SCH (09:05)
[2016-06-22] MEDS: SODIUM CHLORIDE 0.9% FLUSH 5 ML FLUSH IV FLUSH SCH (09:21)
--- NOTE | 2016-06-22 15:21 | HHI.NSPN ---
History Chief Complaint: coughing with soar throat Interval History Day 1 after ACDF at C6/7 for a large HNP with cord contusion, alert and starting PT. Her balance difficulty and numbness in the right C7 and left thigh require the help of PT and OT this week end. She has been coughing but lozanges and robitussin helped. She is eating well. 06/22/16 She had another coughing spell this am and increased pain but her mobility is improved. Spasticity in the left leg is also improving. Review of Systems General: Negative for: fever, chills, insomnia Respiratory: Negative for: shortness of breath, cough, sputum Cardiovascular: Negative for: chest pain, palpitations, orthopnea Gastrointestinal: Negative for: nausea, vomitting, diarrhea, constipation Genitourinary: Negative for: urinary burning, urinary frequency, urinary urgency Exam Results Vital Signs Date Time Temp Pulse Resp B/P Pulse Ox O2 Delivery O2 Flow Rate FiO2 06/22/16 12:08 98.6 78 16 125/70 95 06/22/16 10:20 21 06/20/16 19:47 Nasal Cannula 2.00 Intake and Output 06/21/16 06/21/16 06/22/16 08:00 16:00 00:00 Intake Total 1506 ml 1096 ml Balance 1506 ml 1096 ml Physical Examination Alert and oriented x 3, Face symmetric, voice nasal, Motor 5/5 in the delt/bic/tri/grasps/HF but numb in the last digit of the right hand and in the left thigh Lungs with poor aeration and few rhonchi and wheezes Spasticity is still severe with positive Bullard bilaterally but clonus on the left has improved, Abd soft, wound dry Gait improved but still needs a cane for safety wound clean and dry Medical Decision Making Impression and Plan Cervical myelopathy, s/p ACDF C6/7, started OT/PT for safety, balance and core strength. Plan discharge when the gait has improved 06/22/16 Gait training continued. Upper airway irritation still present with poor aeration. Nebs ordered for 24 hrs. Jose Guy Jun 22, 2016 15:21
[2016-06-22] MEDS: RESP: ALBUTEROL 1.25 MG/3 ML NEB (SCH) NEB ×2 (16:54→21:13)
[2016-06-22] MEDS: [UNRECOGNIZED DRUG - REMARK] T-DERMAL SCH (21:00)
[2016-06-23 00:54] VITALS: BP 113/59; PULSE 74; RESP 17; TEMP 98.2; O2SAT 93
[2016-06-23] MEDS: oxyCODONE/ACETAMINOPHEN 5 MG/325 MG TAB PO PRN ×2 (01:40→05:48)
[2016-06-23] MEDS: SODIUM CHLORIDE 0.9% FLUSH 5 ML FLUSH IV FLUSH SCH ×2 (01:41→09:19)
[2016-06-23 04:40] VITALS: BP 110/67; PULSE 82; RESP 19; TEMP 97.7; O2SAT 94
[2016-06-23] MEDS: RESP: ALBUTEROL 1.25 MG/3 ML NEB (SCH) NEB ×2 (05:03→08:26)
[2016-06-23] MEDS: BACLOFEN 10 MG TAB PO SCH ×2 (05:49→14:49)
[2016-06-23 08:00] VITALS: BP 106/58; PULSE 67; RESP 18; TEMP 96.9; O2SAT 95
[2016-06-23] MEDS: MULTIVIT/MIN/PREN/FOL AC/IRON PRENATAL TAB PO SCH (08:19)
[2016-06-23] MEDS: PANTOPRAZOLE SODIUM 40 MG VIAL IV SCH (08:19)
[2016-06-23] MEDS: DOCUSATE SODIUM 50 MG/SENNA 8.6 MG TAB PO SCH (08:20)
[2016-06-23 08:26] VITALS: O2SAT 95
[2016-06-23] MEDS ORDERED: POLYETHYLENE GLYCOL 17 GM PKG PO ONE (08:30)
[2016-06-23 08:56] LABS: AUTOMATED NEUTROPHIL # 9.6 TH/MM3 (1.8-7.7); BASOPHIL # 0.1 TH/MM3 (0-0.2); BASOPHIL % 0.4 % (0.0-2.0); EOSINOPHIL # 0.3 TH/MM3 (0-0.4); EOSINOPHIL % 1.9 % (0.0-4.0); HEMATOCRIT 35.9 % (35.0-46.0); HEMO FLAGS DIFF FINAL; LYMPHOCYTE # 3.3 TH/MM3 (1.0-4.8); MEAN CELL VOLUME 92.2 FL (80.0-100.0); MEAN CORPUSCULAR HEMOGLOBIN 31.1 PG (27.0-34.0); MEAN CORPUSCULAR HGB CONC 33.8 % (32.0-36.0); MONO % 7.6 % (0.0-8.0); NEUT % 67.1 % (16.0-70.0); PLATELET COUNT 205 TH/MM3 (150-450); RED CELL DISTRIBUTION WIDTH 12.9 % (11.6-17.2); WHITE BLOOD COUNT 14.3 TH/MM3 (4.0-11.0)
[2016-06-23] MEDS: LIDOCAINE HCL 5% PATCH TD SCH (09:00)
[2016-06-23] MEDS: REMOVE OLD NICODERM (NICOTINE) PATCH TD SCH (09:00)
[2016-06-23] MEDS: NICOTINE 21 MG/24 HR PATCH TD SCH (09:00)
[2016-06-23 12:00] VITALS: BP 110/59; PULSE 66; RESP 18; TEMP 97.9; O2SAT 97
[2016-06-23] MEDS ORDERED: OXYC1TAB63 PO (13:24)
[2016-06-23] MEDS ORDERED: NICO21DI2 TD (13:24)
[2016-06-23] MEDS ORDERED: BACL10TA PO (13:24)
--- NOTE | 2016-06-23 13:27 | HHI.DS ---
Discharge Summary Admission Date Jun 19, 2016 at 13:20 Discharge Date: Jun 23, 2016 Admitting Diagnosis Cervical cord compression with edema and disc herniation (1) Cervical spondylosis with myelopathy Diagnosis: Principal ICD Code: M47.12 (2) Anemia, chronic disease Diagnosis: Secondary ICD Code: D63.8 Brief History 35 yr old presents with increased difficulty walking and controlling her bladder. She had neck pain and numbness in both lateral arms radiating to the hands with neck flexion since last February. She has improved with intensive care specialist but after recent neck alignment she developed difficulty walking and urinary incontinence as well as severe back spasms. Her left groin and SI region are numb and locked. She had no trauma. CBC/BMP: 06/23/16 0817 06/21/16 0410 Significant Findings Laboratory Tests Test 06/21/16 06/23/16 04:10 08:17 White Blood Count 22.3 TH/MM3 14.3 TH/MM3 (4.0-11.0) (4.0-11.0) Neutrophils (%) (Auto) 80.7 % (16.0-70.0) Neutrophils # (Auto) 18.0 TH/MM3 9.6 TH/MM3 (1.8-7.7) (1.8-7.7) Monocytes # (Auto) 1.0 TH/MM3 1.1 TH/MM3 (0-0.9) (0-0.9) Chloride Level 112 MEQ/L (98-107) Estimat Glomerular Filtration 72 ML/MIN (>89) Rate Red Blood Count 3.90 MIL/MM3 (4.00-5.30) Imaging Last Impressions Cervical Spine X-Ray 06/20/16 0000 Signed Impressions: Service Date/Time: June 17:04 - CONCLUSION: Status post anterior fusion at the C6-7 level. Kj Goyal MD Thoracic Spine MRI 06/19/16 0000 Signed Impressions: Service Date/Time: Sunday, June 19, 2016 11:16 - CONCLUSION: 1. Small left posterior disc protrusion at T8-9 encroaches on the anterior epidural space but does not result in significant stenosis. Spinal canal is patent throughout the dorsal spine. 2. Apparent large disc at C6-7 which encroaches on the spinal canal and appears to result in cord compromise and focal cord edema. 3. In addition, there appears to be an area of enhancement within the cord at that C6-7. Whether this is reactive due to the cord compromise or actually represents an intramedullary lesion cannot be determined on this limited exam of this region. Recommend a dedicated MRI of the cervical spine with and without gadolinium for further characterization. Bran Townsend MD Lumbar Spine MRI 06/19/16 0000 Signed Impressions: Service Date/Time: Sunday, June 19, 2016 11:16 - CONCLUSION: Negative for acute process.. To Troy MD FACR Cervical Spine MRI 06/19/16 0000 Signed Impressions: Service Date/Time: Sunday, June 19, 2016 11:16 - CONCLUSION: Large disc herniation at C6-C7 with cord contusion and edema in the cord. To Troy MD FACR PE at Discharge Alert and oriented x 3, Motor improved with 4/5 strength in hip flexors, neck wound clean and dry, gait stable with standby assist Hospital Course She underwent ACDF at C6/7 for cord decompression followed by OT/PT Pt Condition on Discharge: Good Discharge Disposition: Discharge Home Discharge Instructions DIET: Follow Instructions for: As Tolerated, No Restrictions, Soft Diet Speech Therapy-Diet Recommenda: Soft ACTIVITIES You can perform: Weight Bearing As Gabino Activities to Avoid: Concussion Sports, Contact Sports, Lifting/Bending, Strenuous Activity, Driving Jose Guy Jun 23, 2016 13:27
[2016-07-01] MEDS ORDERED: GABA300C5 PO (15:07)
[2016-07-29] MEDS ORDERED: PROT40TA PO (15:47)
[2016-07-29] MEDS ORDERED: DULO20 PO (15:47)
[2016-08-07] MEDS ORDERED: GABA300C5 PO (14:12)
[2016-08-27] MEDS ORDERED: TRAM50TA PO (12:33)
[2016-09-13] MEDS ORDERED: GABA300C5 PO (17:11)
[2016-09-24] MEDS ORDERED: BACL10TA PO (15:36)
[2016-10-17] MEDS ORDERED: GABA300C5 PO (13:52)
== END 2016-06-23 15:21 | disposition home or self-care (01) | DRG 472 ==
LOC: NEPE 06:47 → NEDA 13:20 → N03A 21:22 → N05A 06-21 15:18
PROVIDERS: ADMIT Neurological Surgery; ATTEND Neurological Surgery
PROC: 0RT30ZZ Resection of Cervical Vertebral Disc, Open Approach (ICD-10-PCS; 2016-06-20)
PROC: 0RG1070 Fusion of Cervical Vertebral Joint with Autologous Tissue Substitute, Anterior Approach, Anterior Column, Open Approach (ICD-10-PCS; principal; 2016-06-20 13:30)
DX: M50.023 Cervical disc disorder at C6-C7 level with myelopathy (principal); M47.12 Other spondylosis with myelopathy, cervical region; R53.82 Chronic fatigue, unspecified; R32 Unspecified urinary incontinence; D63.8 Anemia in other chronic diseases classified elsewhere; N85.4 Malposition of uterus; F17.210 Nicotine dependence, cigarettes, uncomplicated; Z86.14 Personal history of Methicillin resistant Staphylococcus aureus infection; Z88.0 Allergy status to penicillin
CPT/HCPCS: 72040; 72156; 72157; 72158; 76000; 80048; 80053; 81001; 83036; 83540; 83550; 84703; 85025; 85610; 85652; 85730; 86850; 86900; 86901; 87641; 93005; 94150; 94640; 94664; 96361; 96374; 96375; A9579; C1713; C9113; J0131; J1100; J1170; J2060; J2250; J2270; J2370; J2710; J3010; J7030; J7613; L0172

== ENCOUNTER 2016-06-27 14:01 | Observation (INO) | payer MEDICAID, OTHER ==
[~2016-06-27] VITALS: Ht 157.5 cm; Wt 61.0 kg
[~2016-06-27 14:01] MED LIST changes: +BACL10TA PO; -CYCL-36 PO; -IBUP800 PO; -LEVA750T9 PO; -MACR100C PO; +NICO21DI2 TD; +OXYC1TAB63 PO; -TRAM50 PO
[2016-06-27 14:03] VITALS: BP 139/69; PULSE 132; RESP 24; TEMP 100.4; O2SAT 96
[2016-06-27 15:00] LABS: AUTOMATED NEUTROPHIL # 11.5 TH/MM3 (1.8-7.7); BASOPHIL % 0.2 % (0.0-2.0); EOSINOPHIL # 0.1 TH/MM3 (0-0.4); HEMATOCRIT 40.2 % (35.0-46.0); HEMO FLAGS DIFF FINAL; LYMPH % 5.2 % (9.0-44.0); LYMPHOCYTE # 0.7 TH/MM3 (1.0-4.8); MEAN CELL VOLUME 90.6 FL (80.0-100.0); MEAN CORPUSCULAR HEMOGLOBIN 30.5 PG (27.0-34.0); MEAN CORPUSCULAR HGB CONC 33.7 % (32.0-36.0); MONO % 1.9 % (0.0-8.0); NEUT % 91.7 % (16.0-70.0); PLATELET COUNT 194 TH/MM3 (150-450); RED BLOOD COUNT 4.44 MIL/MM3 (4.00-5.30); RED CELL DISTRIBUTION WIDTH 12.9 % (11.6-17.2); WHITE BLOOD COUNT 12.5 TH/MM3 (4.0-11.0)
[2016-06-27 15:18] LABS: BACTERIA, URINE FEW /hpf; BLOOD, URINE LARGE (NEG); COMMENT (UR) CULTURE INDICATED; CULTURE IF INDICATED CULTURE INDICATED; GLUCOSE,URINE NEG (NEG); KETONE, URINE NEG (NEG); MUCUS URINE FEW /lpf (OCC); PH, URINE 6.5 (5.0-8.5); SQUAMOUS EPITHELIAL CELL URINE 2 /hpf (0-5); URINE COLOR YELLOW (YELLW/STRAW)
[2016-06-27 15:19] LABS: NITRITE,URINE POS (NEG)
[2016-06-27 15:27] LABS: ANION GAP 9 MEQ/L (5-15); AST (GOT) 52 U/L (15-37); BICARBONATE 22.4 MEQ/L (21.0-32.0); BLOOD UREA NITROGEN 12 MG/DL (7-18); CHLORIDE 104 MEQ/L (98-107); GLOMERULAR FILTRATION RATE 70 ML/MIN (>89); POTASSIUM 3.8 MEQ/L (3.5-5.1); SODIUM (NA) 135 MEQ/L (136-145)
[2016-06-27 15:29] LABS: ALKALINE PHOSPHATASE 123 U/L (45-117); ALT (GPT) 67 U/L (10-53); TOTAL BILIRUBIN ADULT 0.6 MG/DL (0.2-1.0)
[2016-06-27] MEDS ORDERED: SODIUM CHLOR 0.9% 1000 ML INJ 1,000 ML IV ONE (19:00)
[2016-06-27] MEDS ORDERED: ONDANSETRON HCL 4 MG/2 ML VIAL IV PUSH ONE (19:00)
[2016-06-27] MEDS ORDERED: cefTRIAXone INJ 1,000 MG in SODIUM CHLORIDE 0.9% INJ 100 ML IV ONE (19:00)
[2016-06-27] MEDS ORDERED: ACETAMINOPHEN 325 MG TAB PO ONE (19:00)
[2016-06-27 19:23] VITALS: O2SAT 95
[2016-06-27 19:27] VITALS: BP 99/57; PULSE 90; RESP 18; O2SAT 95
[2016-06-27 19:44] VITALS: BP 103/63; PULSE 90; RESP 18; TEMP 98.1; O2SAT 96
[2016-06-27 19:59] LABS: BETA HCG QUANT LESS THAN 1 MIU/ML (0-5)
[2016-06-27] MEDS ORDERED: IOHEXOL 350 MG/ML 10 ML VIAL (for RAD DIAG) IV ONE (20:27)
--- NOTE | 2016-06-27 20:30 | PD ---
HPI Chief Complaint: Abdominal Pain Time Seen by Provider: 18:35 Travel History International Travel<30 days: No Contact w/Intl Traveler<30days: No Traveled to known affect area: No History of Present Illness HPI Patient is a 35 year old female who comes in complaining of chills, body aches, lower abdominal pain. She says the symptoms started yesterday. She had surgery on C6-C7 performed one week ago and was feeling fine until yesterday. She says she feels like something is stuck in her throat. She has been trying not to take the pain medication prescribed to her, but says she usually has to take one at night for severe pain. The last time she took anything was early in the morning. She reports some nausea, but no vomiting. She says she is currently on her menstrual period and has cramps to her lower abdomen. She denies cough or SOB. 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) Implanted Vascular Access Dvce: No Musculoskeletal: Yes Neurologic: Yes Psychiatric: No Reproductive: Yes (inverted uterus) Respiratory: No Immunizations Current: Yes Migraines: No Seizures: No Sleep Apnea: No ?: Not LMP: CURRENT Menopausal: No : 1 Para: 1 Miscarriage: 0 : 0 Past Surgical History Abdominal Surgery: No Cardiac Surgery: No Ear Surgery: No Endocrine Surgery: No Eye Surgery: No Genitourinary Surgery: No Gynecologic Surgery: No Oral Surgery: Yes Thoracic Surgery: No Other Surgery: Yes (RIGHT 2ND FINGER AMP WITH REATTACHMENT, SPINAL CORD SURGERY ACDF) Social History Alcohol Use: No Tobacco Use: No (QUIT 7 DAYS AGO) Substance Use: No Allergies-Medications (Allergen,Severity, Reaction): Coded Allergies: Penicillin (Verified Allergy, Severe, HIVES, 06/27/16) *MDRO Multi-Drug Resistant Organism (Verified Adverse Reaction, Unknown, MRSA, 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 Reported Meds & Prescriptions Reported Meds & Active Scripts Active Nicotine Patch (Nicotine) 21 Mg/24 Hr Patch 1 Patch TD DAILY PRN Oxycodone-Acetaminophen 5-325 mg Tab 1 Tab PO Q4H PRN Baclofen 10 Mg Tab 10 Mg PO Q8HR PRN Review of Systems Except as stated in HPI: all other systems reviewed are Neg General / Constitutional: Positive: Fever, Chills HENT: No: Headaches, Lightheadedness Cardiovascular: No: Chest Pain or Discomfort Respiratory: No: Shortness of Breath Gastrointestinal: Positive: Nausea, Abdominal Pain, Constipation, No: Vomiting Genitourinary: No: Flank Pain Musculoskeletal: No: Myalgias, Edema, Pain Skin: No Rash, No Change in Pigmentation Neurologic: No: Weakness, Dizziness Physical Exam Narrative GENERAL: awake and alert, in no acute distress SKIN: Warm and dry. Surgical wound with steri strips in place. No surrounding erythema, warmth, or fluctuance. HEAD: Atraumatic. Normocephalic. EYES: Pupils equal and round. No scleral icterus. ENT: No nasal bleeding or discharge. Mucous membranes pink and moist. NECK: Trachea midline. No JVD. CARDIOVASCULAR: Regular rate and rhythm. No murmur appreciated. RESPIRATORY: No accessory muscle use. Clear to auscultation. Breath sounds equal bilaterally. GASTROINTESTINAL: Abdomen soft, nondistended. Tender to palpation across lower abdomen. No rebound or guarding. MUSCULOSKELETAL: No obvious deformities. No clubbing. No cyanosis. No edema. NEUROLOGICAL: Awake and alert. No obvious cranial nerve deficits. Motor grossly within normal limits. Normal speech. PSYCHIATRIC: Appropriate mood and affect; insight and judgment normal. Data Data Last Documented VS Vital Signs Date Time Temp Pulse Resp B/P Pulse Ox O2 Delivery O2 Flow Rate FiO2 06/27/16 19:44 98.1 90 18 103/63 96 Room Air Orders Complete Blood Count With Diff (06/27/16 14:09) Comprehensive Metabolic Panel (06/27/16 14:09) Urinalysis - C+S If Indicated (06/27/16 14:09) Iv Access Insert/Monitor (06/27/16 14:09) Oxygen Administration (06/27/16 14:09) Oximetry (06/27/16 14:09) Lipase (06/27/16 14:09) Lactic Acid Sepsis Protocol (06/27/16 14:09) Blood Culture (06/27/16 14:09) Urine Culture (06/27/16 14:34) Ed Urine Pregnancytest Poc (06/27/16 18:55) Ct Soft Tiss Neck W Iv Cont (06/27/16 ) Ct Abd/Pel W Iv Contrast(Rout) (06/27/16 ) Beta Hcg (Quant/Titer) (06/27/16 18:55) Sodium Chlor 0.9% 1000 Ml Inj (Ns 1000 M (06/27/16 19:00) Acetaminophen (Tylenol) (06/27/16 19:00) Ondansetron Inj (Zofran Inj) (06/27/16 19:00) Ceftriaxone Inj (Rocephin Inj) (06/27/16 19:00) Iohexol 350 Inj (Omnipaque 350 Inj) (06/27/16 20:27) Place In Observation (06/27/16 ) Vital Signs (Adult) Q4H (06/27/16 21:57) Activity Oob Ad Annamaria (06/27/16 21:57) Diet Regular Basic (06/28/16 Breakfast) Sodium Chlor 0.9% 1000 Ml Inj (Ns 1000 M (06/27/16 21:57) Sodium Chloride 0.9% Flush (Ns Flush) (06/27/16 22:00) Sodium Chloride 0.9% Flush (Ns Flush) (06/28/16 09:00) Ondansetron Inj (Zofran Inj) (06/27/16 22:00) Bisacodyl Supp (Dulcolax Supp) (06/27/16 22:00) Comprehensive Metabolic Panel (06/28/16 06:00) Complete Blood Count With Diff (06/28/16 06:00) Scd Bilateral/Knee High CHARLES.BID (06/27/16 21:57) Tani Bilateral/Knee High CHARLES.QSHIFT (06/27/16 21:57) Acetaminophen (Tylenol) (06/27/16 22:00) Morphine Inj (Morphine Inj) (06/27/16 22:00) Baclofen (Lioresal) (06/27/16 22:00) Oxycodone-Acetamin 5-325 Mg (Percocet (06/27/16 22:00) Admit Order (Ed Use Only) (06/27/16 ) Consult Neurosurgery (06/27/16 ) Labs Laboratory Tests Test 06/27/16 06/27/16 14:34 15:13 White Blood Count 12.5 TH/MM3 Red Blood Count 4.44 MIL/MM3 Hemoglobin 13.6 GM/DL Hematocrit 40.2 % Mean Corpuscular Volume 90.6 FL Mean Corpuscular Hemoglobin 30.5 PG Mean Corpuscular Hemoglobin 33.7 % Concent Red Cell Distribution Width 12.9 % Platelet Count 194 TH/MM3 Mean Platelet Volume 8.5 FL Neutrophils (%) (Auto) 91.7 % Lymphocytes (%) (Auto) 5.2 % Monocytes (%) (Auto) 1.9 % Eosinophils (%) (Auto) 1.0 % Basophils (%) (Auto) 0.2 % Neutrophils # (Auto) 11.5 TH/MM3 Lymphocytes # (Auto) 0.7 TH/MM3 Monocytes # (Auto) 0.2 TH/MM3 Eosinophils # (Auto) 0.1 TH/MM3 Basophils # (Auto) 0.0 TH/MM3 CBC Comment DIFF FINAL Differential Comment Urine Color YELLOW Urine Turbidity CLEAR Urine pH 6.5 Urine Specific [place] 1.014 Urine Protein NEG mg/dL Urine Glucose (UA) NEG mg/dL Urine Ketones NEG mg/dL Urine Occult Blood LARGE Urine Nitrite POS Urine Bilirubin NEG Urine Urobilinogen LESS THAN 2.0 MG/DL Urine Leukocyte Esterase NEG Urine RBC 147 /hpf Urine WBC 7 /hpf Urine Squamous Epithelial 2 /hpf Cells Urine Bacteria FEW /hpf Urine Mucus FEW /lpf Microscopic Urinalysis Comment CULTURE INDICATED Sodium Level 135 MEQ/L Potassium Level 3.8 MEQ/L Chloride Level 104 MEQ/L Carbon Dioxide Level 22.4 MEQ/L Anion Gap 9 MEQ/L Blood Urea Nitrogen 12 MG/DL Creatinine 0.91 MG/DL Estimat Glomerular Filtration 70 ML/MIN Rate Random Glucose 93 MG/DL Calcium Level 9.3 MG/DL Total Bilirubin 0.6 MG/DL Aspartate Amino Transf 52 U/L (AST/SGOT) Alanine Aminotransferase 67 U/L (ALT/SGPT) Alkaline Phosphatase 123 U/L Total Protein 7.3 GM/DL Albumin 3.7 GM/DL Lipase 113 U/L Human Chorionic Gonadotropin, LESS THAN 1 Quant MIU/ML Lactic Acid Level 1.3 mmol/L MDM Medical Decision Making Medical Screen Exam Complete: Yes Emergency Medical Condition: Yes Differential Diagnosis UTI versus pyelonephritis versus colitis versus postop infection Narrative Course Patient is a 35-year-old female who comes in complaining of chills, abdominal pain, throat pain. Exam shows well healing surgical wound. There are some lower abdominal tenderness. IV established, labs sent. Patient has slight elevation in white blood cell count. Urinalysis is positive for UTI. Abdomen pelvis shows no acute abnormalities. CT of the neck shows a fluid collection around the surgical site. This could be postop fluid versus seroma versus abscess. I spoke with Dr. Piña would like the patient placed in observation for further management. Patient given Rocephin for her UTI. Given IV fluids, Tylenol, Zofran. She reports feeling better after medications. Patient placed in observation for further management. Diagnosis Primary Impression: UTI (lower urinary tract infection) Additional Impression: Surgical complication Qualified Code: T81.4XXA - Postoperative infection, initial encounter Admitting Information Admitting Physician Requests: Observation Marly Mandel MD Jun 27, 2016 20:30
--- NOTE | 2016-06-27 20:54 | RADRPT ---
EXAM DATE/TIME: 06/27/2016 20:20 [facility] COMPARISON: CT ABDOMEN & PELVIS W CONTRAST, March 20, 2015, 15:21. INDICATIONS : Fever, chills and constipation post surgery IV CONTRAST: 100 cc Omnipaque 350 (iohexol) IV ; Cumulative dose for multiple exams. ORAL CONTRAST: No oral contrast ingested. RADIATION DOSE: 16.39 CTDIvol (mGy) MEDICAL HISTORY : Arthritis. SURGICAL HISTORY : C6/C7 cervical cord decompresson 2 weeks ago. ENCOUNTER: Initial ACUITY: 2 weeks PAIN SCALE: 6/10 LOCATION: neck TECHNIQUE: Volumetric scanning of the abdomen and pelvis was performed. Using automated exposure control and ad justment of the mA and/or kV according to patient size, radiation dose was kept as low as reasonably achievable to obtain optimal diagnostic quality images. FINDINGS: LOWER LUNGS: The visualized lower lungs are clear. LIVER: Homogeneous density without lesion. There is no dilation of the biliary tree. No calcified gallston es. SPLEEN: Calcified granulomas are seen. PANCREAS: Within normal limits. KIDNEYS: Normal in size and shape. There is no mass, stone or hydronephrosis. ADRENAL GLANDS: Within normal limits. VASCULAR: There is no aortic aneurysm. BOWEL/MESENTERY: The stomach, small bowel, and colon demonstrate no acute abnormality. There is no free intraperitone al air or fluid. ABDOMINAL WALL: Within normal limits. RETROPERITONEUM: There is no lymphadenopathy. BLADDER: No wall thickening or mass. REPRODUCTIVE: Within normal limits. INGUINAL: There is no lymphadenopathy or hernia. MUSCULOSKELETAL: There is degenerative change of the lower lumbar spine. CONCLUSION: No acute disease. Curry Benavides MD on June 27, 2016 at 20:50 Board Certified Radiologist. This report was verified electronically.
--- NOTE | 2016-06-27 21:00 | RADRPT ---
EXAM DATE/TIME: 06/27/2016 20:20 [facility] COMPARISON: SPINE CERVICAL LTD (AP&LAT), June 20, 2016, 17:04. INDICATIONS : Fever and chills post surgery. IV CONTRAST: 100 cc Omnipaque 350 (iohexol) IV ; Cumulative dose for multiple exams. RADIATION DOSE: 12.97 CTDIvol (mGy) MEDICAL HISTORY : None SURGICAL HISTORY : C6/C7 cervical cord decompression. ENCOUNTER: Initial ACUITY: 2 weeks PAIN SCALE: 5/10 LOCATION: Neck TECHNIQUE: Volumetric scanning of the neck was performed. Using automated exposure control and a djustment of the mA and/or kV according to patient size, radiation dose was kept as low as reasonably achievable to obtain optimal diagnostic quality images. FINDINGS: There is an anterior cervical fusion plate at the C6-C7 level. There does appear to be increased density seen in the prevertebral soft tissues anterior to this region. This is seen to th e right of midline and to the right of the esophagus. It does cause some mass effect on the posterio r aspect of the right lobe of the trachea. It is associated with some adenopathy in the superior med iastinum with a prominent superior right paratracheal lymph node measuring 1.4 x 0.9 cm. The increas ed density does abut the right common carotid artery. It abuts the undersurface of the right sternoc leidomastoid muscle. A well defined rim to confirm an abscess is not seen. The patient has a 6 mm calcification in the right submandibular gland. The submandibular glands appe ar otherwise normal. The parotid glands are normal. The nasopharynx, oropharynx and hypopharynx are normal. The glottic structures are intact. CONCLUSION: Ill-defined low density/fluid in the right neck extending from the lower cervical sp ine region to the undersurface of the sternocleidomastoid muscle. This abuts the right lateral aspect of the trachea and the medial aspect of the right common carotid artery and the right lateral aspect of the esophagus. This likely represents postoperative fluid. Some degree of seroma, hematoma or ab scess cannot absolutely be excluded although a drainable rim defined structure is not seen. The domenica ent is status post anterior cervical fusion at the C6-C7 level. Curry Benavides MD on June 27, 2016 at 20:45 Board Certified Radiologist. This report was verified electronically.
--- NOTE | 2016-06-27 21:59 | HHI.HP ---
[facility] Jamarcus Fischer Admission Diagnosis Diagnoses: (1) Neck pain Diagnosis: Principal (2) Post-op pain Diagnosis: Principal (3) UTI (lower urinary tract infection) Diagnosis: Principal (4) Elevated LFTs Diagnosis: Principal Travel History International Travel<30 Days: No Contact w/Intl Traveler <30 Da: No Traveled to Known Affected Are: No History of Present Illness This is a 35-year-old female with a PMH of Chronic Fatigue Syndrome, h/o Spondylosis w/ Cord Compression and Myelopathy s/p ACDF of C6-[address] Guy on 06/20/16 who presented to the ER w/ complaints of neck pain, generalized weakness and difficulty swallowing x1 day. Denies fever, chills, nausea, vomiting or diarrhea. On arrival, BP 129/69, HR 132, O2 sat 96% on RA, Temp 100.4. WBC 12.5. Chemistry essentially unremarkable except for elevated LFTs in comparison to labs from 06/19/16. UA positive for UTI. CT Neck with ill- defined fluid in right neck extending from lower cervical spine to sternocleidomastoid muscle, likely postop fluid however unclear underlying abscess. CT Abd/Pelvis w/ no acute findings. Dr. Piña consulted by ER physician, recommended IV Abx and will eval in am. S/p Blood/Urine cultures and IV Rocephin. Review of Systems Except as stated in HPI: all other systems reviewed are Neg ROS: 14 point review of systems otherwise negative. Past Family Social History Past Medical History PMH: Chronic Fatigue Syndrome, h/o Spondylosis w/ Cord Compression and Myelopathy s/p ACDF of C6-[address] 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 No h/o DM or CAD Social History PAST SOCIAL HISTORY: Negative for alcohol or drugs. Quit tobacco 1 week ago. Physical Exam Vital Signs Vital Signs Date Time Temp Pulse Resp B/P Pulse Ox O2 Delivery O2 Flow Rate FiO2 06/27/16 19:44 98.1 90 18 103/63 96 Room Air 06/27/16 19:27 90 18 99/57 95 Room Air 06/27/16 19:23 18 06/27/16 19:23 95 Room Air 06/27/16 19:23 95 Room Air 06/27/16 14:03 100.4 132 24 139/69 96 Room Air Physical Exam PE: GENERAL: Middle-aged female in no acute distress. HEENT: PERRLA, EOMI. No scleral icterus or conjunctival pallor. No lid lag or facial droop. Steri-Strips in place, no signs of infection. CARDIOVASCULAR: Regular rate and rhythm. No obvious murmurs to auscultation. No chest tenderness to palpation. RESPIRATORY: No obvious rhonchi or wheezing. Clear to auscultation. Breath sounds equal bilaterally. GASTROINTESTINAL: Abdomen soft, non-tender, nondistended. BS normal. MUSCULOSKELETAL: Extremities without clubbing, cyanosis, or edema. No obvious deformities. NEUROLOGICAL: Awake, alert and oriented x4. No focal neurologic deficits. Moving both upper and lower extremities spontaneously. Laboratory Laboratory Tests Test 06/27/16 06/27/16 14:34 15:13 White Blood Count 12.5 Red Blood Count 4.44 Hemoglobin 13.6 Hematocrit 40.2 Mean Corpuscular Volume 90.6 Mean Corpuscular Hemoglobin 30.5 Mean Corpuscular Hemoglobin 33.7 Concent Red Cell Distribution Width 12.9 Platelet Count 194 Mean Platelet Volume 8.5 Neutrophils (%) (Auto) 91.7 Lymphocytes (%) (Auto) 5.2 Monocytes (%) (Auto) 1.9 Eosinophils (%) (Auto) 1.0 Basophils (%) (Auto) 0.2 Neutrophils # (Auto) 11.5 Lymphocytes # (Auto) 0.7 Monocytes # (Auto) 0.2 Eosinophils # (Auto) 0.1 Basophils # (Auto) 0.0 CBC Comment DIFF FINAL Differential Comment Urine Color YELLOW Urine Turbidity CLEAR Urine pH 6.5 Urine Specific [place] 1.014 Urine Protein NEG Urine Glucose (UA) NEG Urine Ketones NEG Urine Occult Blood LARGE Urine Nitrite POS Urine Bilirubin NEG Urine Urobilinogen LESS THAN 2.0 Urine Leukocyte Esterase NEG Urine RBC 147 Urine WBC 7 Urine Squamous Epithelial 2 Cells Urine Bacteria FEW Urine Mucus FEW Microscopic Urinalysis Comment CULTURE INDICATED Sodium Level 135 Potassium Level 3.8 Chloride Level 104 Carbon Dioxide Level 22.4 Anion Gap 9 Blood Urea Nitrogen 12 Creatinine 0.91 Estimat Glomerular Filtration 70 Rate Random Glucose 93 Calcium Level 9.3 Total Bilirubin 0.6 Aspartate Amino Transf 52 (AST/SGOT) Alanine Aminotransferase 67 (ALT/SGPT) Alkaline Phosphatase 123 Total Protein 7.3 Albumin 3.7 Lipase 113 Human Chorionic Gonadotropin, LESS THAN 1 Quant Lactic Acid Level 1.3 Date/Time Procedure Status Source Growth 06/27/16 15:28 Aerobic Blood Culture Received Blood Peripheral Pending 06/27/16 15:28 Anaerobic Blood Culture Received Blood Peripheral Pending 06/27/16 14:34 Urine Culture Received Urine Clean Catch Pending Result Diagram: 06/27/16 1434 06/27/16 1434 Assessment and Plan Problem List: (1) Neck pain ICD Code: M54.2 Status: Acute (2) Post-op pain ICD Code: G89.18 Status: Acute (3) Elevated LFTs ICD Code: R94.5 Status: Acute (4) UTI (lower urinary tract infection) ICD Code: N39.0 Status: Acute Assessment and Plan A/P: 1. Neck Pain: c/o neck pain x1 day, no headache, nausea or vomiting. CT Neck w/ ill-defined fluid right neck likely post-surgical changes, possibly underlying abscess, images reviewed by me. Dr. Piña consulted by ER physician , will evaluate in am. Analgesics/antiemetics as needed. S/p Blood cultures in ER, will follow. 2. Post-Op Pain: secondary to above, analgesics/antiemetics as needed. 3. UTI: U/a w/ UTI. Temp 100.3. s/p Urine Culture, IV Rocephin in ER. Follow up cultures, continue IV Rocephin. 4. Elevated LFTs: LFTs mildy elevated in comparison to labs from 06/18/16, repeat labs in am. 5. DVT Prophylaxis: SCD/Teds. 6. Social work for d/c planning as needed. 7. Case discussed w/ ER physician at length. Alaina Avendano MD Jun 27, 2016 21:59
[2016-06-27] MEDS ORDERED: oxyCODONE/ACETAMINOPHEN 5 MG/325 MG TAB PO PRN (22:00)
[2016-06-27] MEDS ORDERED: MORPHINE SULFATE 4 MG/ML INJ IV PRN (22:00)
[2016-06-27] MEDS ORDERED: ONDANSETRON HCL 4 MG/2 ML VIAL IVP PRN (22:00)
[2016-06-27] MEDS ORDERED: BISACODYL 10 MG SUPP PR PRN (22:00)
[2016-06-27] MEDS ORDERED: ACETAMINOPHEN 325 MG TAB PO PRN (22:00)
[2016-06-27] MEDS ORDERED: BACLOFEN 10 MG TAB PO PRN (22:00)
[2016-06-27] MEDS ORDERED: SODIUM CHLORIDE 0.9% FLUSH 5 ML FLUSH FLUSH PRN (22:00)
[2016-06-27] MEDS: SODIUM CHLOR 0.9% 1000 ML INJ 1,000 ML IV SCH (23:39)
[2016-06-28 00:14] VITALS: BP 95/51; PULSE 79; RESP 16; O2SAT 98
[2016-06-28 04:35] LABS: AUTOMATED NEUTROPHIL # 6.2 TH/MM3 (1.8-7.7); BASOPHIL % 0.3 % (0.0-2.0); EOSINOPHIL # 0.2 TH/MM3 (0-0.4); HEMATOCRIT 35.5 % (35.0-46.0); HEMO FLAGS DIFF FINAL; LYMPH % 22.1 % (9.0-44.0); LYMPHOCYTE # 2.3 TH/MM3 (1.0-4.8); MEAN CELL VOLUME 91.6 FL (80.0-100.0); MEAN CORPUSCULAR HGB CONC 33.8 % (32.0-36.0); MONO % 14.5 % (0.0-8.0); NEUT % 61.1 % (16.0-70.0); PLATELET COUNT 183 TH/MM3 (150-450); RED BLOOD COUNT 3.88 MIL/MM3 (4.00-5.30); RED CELL DISTRIBUTION WIDTH 12.8 % (11.6-17.2); WHITE BLOOD COUNT 10.2 TH/MM3 (4.0-11.0)
[2016-06-28 04:41] LABS: ALT (GPT) 61 U/L (10-53); ANION GAP 5 MEQ/L (5-15); AST (GOT) 45 U/L (15-37); BICARBONATE 25.7 MEQ/L (21.0-32.0); BLOOD UREA NITROGEN 10 MG/DL (7-18); CHLORIDE 111 MEQ/L (98-107); GLOMERULAR FILTRATION RATE 86 ML/MIN (>89); SODIUM (NA) 142 MEQ/L (136-145)
[2016-06-28 04:44] LABS: ALKALINE PHOSPHATASE 89 U/L (45-117); TOTAL BILIRUBIN ADULT 0.2 MG/DL (0.2-1.0)
[2016-06-28 05:13] VITALS: BP 96/59; PULSE 66; RESP 16; O2SAT 96
[2016-06-28] MEDS ORDERED: cefTRIAXone INJ 1,000 MG in SODIUM CHLORIDE 0.9% INJ 100 ML IV SCH (08:00)
[2016-06-28] MEDS: SODIUM CHLOR 0.9% 1000 ML INJ 1,000 ML IV SCH (08:44)
[2016-06-28] MEDS ORDERED: SODIUM CHLORIDE 0.9% FLUSH 5 ML FLUSH FLUSH SCH (09:00)
[2016-06-28 12:30] VITALS: TEMP 98.4
[2016-06-28] MEDS ORDERED: BACT800T5 PO (13:38)
[2016-06-28] MEDS ORDERED: PERI8.6T PO (13:47)
[2016-06-28] MEDS ORDERED: ZANT150T2 PO (13:50)
--- NOTE | 2016-06-28 13:50 | HHI.PR ---
Subjective Remarks Follow-up for UTI and groin pain. The patient states yesterday she was having severe pain in her groin along with fevers and chills. She denies any burning with urination. She denies any further groin pain today. She has been ambulating overnight. No nausea or vomiting. No further fever or chills. She never had any neck pain or swelling. She does have some acid reflux and constipation. She feels well and wants to go home today. She has an appointment to see her neurosurgeon, Dr. Guy on Friday and her PCP later in the week. Denies being , history of uterus deformity. Objective Vitals Vital Signs Date Time Temp Pulse Resp B/P Pulse Ox O2 Delivery O2 Flow Rate FiO2 06/28/16 12:30 98.4 06/28/16 09:00 20 98 Room Air 06/28/16 05:13 66 16 96/59 96 Room Air 06/28/16 00:14 79 16 95/51 98 Room Air 06/27/16 23:40 16 06/27/16 19:44 98.1 90 18 103/63 96 Room Air 06/27/16 19:27 90 18 99/57 95 Room Air 06/27/16 19:23 18 06/27/16 19:23 95 Room Air 06/27/16 19:23 95 Room Air 06/27/16 14:03 100.4 132 24 139/69 96 Room Air I/O 06/27/16 06/27/16 06/27/16 06/28/16 06/28/16 06/28/16 07:00 15:00 23:00 07:00 15:00 23:00 Intake Total 320 ml Balance 320 ml Intake Oral 320 ml Result Diagram: 06/28/16 0401 06/28/16 0401 Imaging Last Impressions Neck CT 06/27/16 0000 Signed Impressions: Service Date/Time: June 20:20 - CONCLUSION: Ill- defined low density/fluid in the right neck extending from the lower cervical spine region to the undersurface of the sternocleidomastoid muscle. This abuts the right lateral aspect of the trachea and the medial aspect of the right common carotid artery and the right lateral aspect of the esophagus. This likely represents postoperative fluid. Some degree of seroma, hematoma or abscess cannot absolutely be excluded although a drainable rim defined structure is not seen. The patient is status post anterior cervical fusion at the C6-C7 level. Curry Benavides MD Abdomen/Pelvis CT 06/27/16 0000 Signed Impressions: Service Date/Time: June 20:20 - CONCLUSION: No acute disease. Curry Benavides MD Objective Remarks GENERAL: Well-developed well-nourished. In no acute distress. SKIN: Warm and dry. No lesions noted. HEENT: Normocephalic. Pupils equal and round. Mucous membranes pink and moist. Steri-Strips in place on the anterior cervical surgical site, and no signs of infection. CARDIOVASCULAR: Regular rate and rhythm. No murmur appreciated. RESPIRATORY: No accessory muscle use. Clear to auscultation. Breath sounds equal bilaterally. GASTROINTESTINAL: Abdomen soft, non-tender, nondistended. Bowel sounds x4. MUSCULOSKELETAL: No obvious deformities. No clubbing or cyanosis. No edema. NEUROLOGICAL: Awake and alert. No focal neurological deficits. Moves upper and lower extremities spontaneously. Normal speech. PSYCHIATRIC: Appropriate mood and affect; insight and judgment normal. A/P Problem List: (1) Elevated LFTs ICD Code: R94.5 Status: Acute (2) UTI (lower urinary tract infection) ICD Code: N39.0 Status: Acute Assessment and Plan 35-year-old female with a PMH of Chronic Fatigue Syndrome, h/o Spondylosis w/ Cord Compression and Myelopathy s/p ACDF of C6-[address] Guy on 06/20/16 who presented with lower abdominal pain, chills, body aches. Neck Pain: Reportedly had neck pain last night, denies any further symptoms today. CT Neck w/ ill-defined fluid right neck likely post-surgical changes. Attempted to call Dr. Guy, however unable to get in touch, patient has follow-up appointment in 2 days. Analgesics as needed, add bowel regimen. UTI: Presented with fever, chills, leukocytosis, lower abdominal pain. U/a w/ UTI. Urine culture growing gram-negative rods. Received IV Rocephin 2 since admission. Continue course of Bactrim. Elevated LFTs: LFTs mildy elevated in comparison to labs from 06/18/16, repeat labs show improvement. Reflux: Zantac DVT Prophylaxis: SCD/Teds. Written by Danial Wheeler, acting as scribe for Dr. Sr on 06/28/16 at 13:50. The documentation accurately reflects the work performed mini-ed-efae by me on at 13:50. Discharge Planning Discharge patient to home Condition on discharge: Improved Regular Diet as tolerated Regular activity Rx written: Bactrim, Etelvina-Colace, Zantac Follow-up with primary care physician and neurosurgery Danial Wheeler Jun 28, 2016 13:50 Vernon Sr DO Jun 28, 2016 15:42
[2016-07-01] MEDS ORDERED: GABA300C5 PO (15:07)
[2016-07-29] MEDS ORDERED: DULO20 PO (15:47)
[2016-07-29] MEDS ORDERED: PROT40TA PO (15:47)
[2016-08-07] MEDS ORDERED: GABA300C5 PO (14:12)
[2016-08-27] MEDS ORDERED: TRAM50TA PO (12:33)
[2016-09-13] MEDS ORDERED: GABA300C5 PO (17:11)
[2016-09-24] MEDS ORDERED: BACL10TA PO (15:36)
[2016-10-17] MEDS ORDERED: GABA300C5 PO (13:52)
== END 2016-06-28 14:34 | disposition home or self-care (01) ==
LOC: NEPB 14:01 → NEDA 22:01 → NEDH 06-28 02:10
PROVIDERS: ADMIT Hospitalist; ATTEND Hospitalist
DX: N39.0 Urinary tract infection, site not specified (principal); B96.20 Unspecified Escherichia coli [E. coli] as the cause of diseases classified elsewhere; M54.2 Cervicalgia; R10.30 Lower abdominal pain, unspecified; R11.0 Nausea; R53.82 Chronic fatigue, unspecified; R50.9 Fever, unspecified; K59.00 Constipation, unspecified; Z98.1 Arthrodesis status; Z16.20 Resistance to unspecified antibiotic
CPT/HCPCS: 70491; 74177; 80053; 81001; 83605; 83690; 84702; 84703; 85025; 87040; 87077; 87086; 87186; 96361; 96365; 96375; 99285; G0378; J0696; J2405; J7030; Q9967